=== PATIENT | male | born 1985 | race American Indian/Alaskan Native ===

== ENCOUNTER 2017-09-21 19:15 | Emergency (ER) | payer SELFPAY ==
--- NOTE | 2017-09-22 01:16 | Emergency Department Report ---
ED ENT HPI - General Chief complaint: Dental/Oral Stated complaint: MOUTH/TONGUE SWOLLEN Time Seen by Provider: 09/22/17 01:16 Source: patient Mode of arrival: Ambulatory Limitations: No Limitations - Related Data Previous Rx's Medication Instructions Recorded Last Taken Type Ibuprofen [Motrin 800 MG tab] 800 mg PO Q8HR PRN #30 tablet 11/07/15 Unknown Rx Allergies Allergy/AdvReac Type Severity Reaction Status Date / Time No Known Allergies Allergy Verified 11/06/15 23:23 ED Dental HPI - General Chief complaint: Dental/Oral Stated complaint: MOUTH/TONGUE SWOLLEN Time Seen by Provider: 09/22/17 01:16 Source: patient Mode of arrival: Ambulatory Limitations: No Limitations - Related Data Previous Rx's Medication Instructions Recorded Last Taken Type Ibuprofen [Motrin 800 MG tab] 800 mg PO Q8HR PRN #30 tablet 11/07/15 Unknown Rx Allergies Allergy/AdvReac Type Severity Reaction Status Date / Time No Known Allergies Allergy Verified 11/06/15 23:23 ED Review of Systems ROS: Stated complaint: MOUTH/TONGUE SWOLLEN Other details as noted in HPI ED Past Medical Hx - Past Medical History Additional medical history: Dental pain - Social History Smoking Status: Current Some Day Smoker Substance Use Type: None, Alcohol - Medications Home Medications: Home Medications Medication Instructions Recorded Confirmed Last Taken Type Ibuprofen [Motrin 800 MG tab] 800 mg PO Q8HR PRN #30 tablet 11/07/15 Unknown Rx ED Physical Exam - General Limitations: No Limitations ED Course Vital Signs 09/21/17 09/21/17 19:45 20:09 Temperature 100.1 F H 100.1 F H Pulse Rate 81 83 Respiratory 18 Rate Blood Pressure 145/72 145/72 O2 Sat by Pulse 99 Oximetry Critical care attestation.: If time is entered above; I have spent that time in minutes in the direct care of this critically ill patient, excluding procedure time. ED Disposition Condition: Stable Referrals: PRIMARY CARE,MD [Primary Care Provider] - 3-5 Days
--- NOTE | 2017-09-22 03:36 | Emergency Department Report ---
Chief Complaint: Dental/Oral Stated Complaint: MOUTH/TONGUE SWOLLEN Time Seen by Provider: 09/22/17 01:16 - HPI History of Present Illness: Patient here reportedly went to the dentist on 09/19/2017 and was seen for toothache diagnosed with infection and reports that his tongue was swelling and his face on the right side is swollen. Patient was started on penicillin VK 2 days ago and he said he is taking it every 6 hours, ibuprofen for pain every 6 hours and [place] every 4-6 hours as needed. This was prescribed by dentist and patient was to return to dentist for evaluation and treatment after being on antibiotic for a while. Patient said he is having increase in pain with swelling to his jaw pain is 8 out of 10. Denies any sore throat or drooling. Denies any nausea or vomiting. Denies any difficulty breathing and but reports that he feels like his throat is narrowing. He said his mouth and Tylenol as gotten bigger since then. He reports fever despite taking Motrin. Denies any chest pain. Denies any headache or nasal congestion. - ROS Review of Systems: All systems are negative unless stated in HPI above. Positive facial swelling, positive facial pain and tooth pain, positive tongue swelling and mild swelling. Positive fever. Negative chest pain or shortness of breath but positive feeling like throat is narrowing. Negative nasal congestion or runny nose. Negative headache. Positive fever - Exam Vital Signs: Vital Signs 09/21/17 09/21/17 19:45 20:09 Temperature 100.1 F H 100.1 F H Pulse Rate 81 83 Respiratory 18 Rate Blood Pressure 145/72 145/72 O2 Sat by Pulse 99 Oximetry Physical Exam: Gen.: This is a 31-year-old male that is well-nourished and in mild distress. Mouth: No trismus, positive tongue elevation, minimal uvular shift and oral airway is patent. Positive right facial swelling, no erythema tender to palpate nonfluctuant with positive injuries in extending down to right submandibular area. Dental caries, poor oral care and gingival inflammation with malodorous breath. Lungs: Clear to auscultate bilaterally, no rhonchi wheezes or rales MSE screening note: Focused history and physical exam performed. Due to findings the following was ordered: Patient discussed with doctor:: BERNIE BOYLE ED Medical Decision Making - Medical Decision Making MDM: Patient seen by a APC in the track area and screening done. Appropriate orders placed. I discussed this case with Dr. Boyle. CT scan of the neck with contrast ordered, labs, medication orders, IV fluid and INT ED Disposition for MSE Condition: Stable Referrals: PRIMARY CARE,MD [Primary Care Provider] - 3-5 Days
[2017-09-22] MEDS ORDERED: UNASYN/NS 3 GM/100 ML 3 GM/100 ML BAG IV ONE (03:42)
[2017-09-22] MEDS ORDERED: TYLENOL PO ONE (03:42)
[2017-09-22] MEDS ORDERED: NACL 0.9% 1000 ML 1,000 ML IV ONE (03:45)
[2017-09-22] MEDS ORDERED: MORPHINE IM ONE (03:47)
[2017-09-22] MEDS ORDERED: ZOFRAN IV ONE (03:47)
[2017-09-22 03:58] LABS: Basophils % (Auto) 0.1 % (0.0-1.8); Hematocrit 45.9 % (35.5-45.6); Hemoglobin 15.8 gm/dl (11.8-15.2); Lymphocytes # (Auto) 0.6 K/mm3 (1.2-5.4); Lymphocytes % (Auto) 3.6 % (13.4-35.0); Mean Corpuscular HGB Conc 35 % (32-34); Mean Corpuscular Hemoglobin 32 pg (28-32); Mean Corpuscular Volume 93 fl (84-94); Monocytes # (Auto) 2.1 K/mm3 (0.0-0.8); Monocytes % (Auto) 13.1 % (0.0-7.3); Red Blood Count 4.94 M/mm3 (3.65-5.03); Red Cell Distribution Width 13.9 % (13.2-15.2)
[2017-09-22 04:05] LABS: Platelet Count 242 K/mm3 (140-440)
[2017-09-22 04:24] LABS: INR 1.17 (0.87-1.13); Partial Thromboplastin Time 26.9 Sec. (24.2-36.6)
[2017-09-22 05:50] LABS: Blood Urea Nitrogen TNR mg/dL (9-20)
[2017-09-22 05:51] LABS: Alanine Aminotransferase TNR units/L (7-56); Albumin TNR g/dL (3.9-5); BUN/Creatinine Ratio TNR; Calcium TNR mg/dL (8.4-10.2)
[2017-09-22 05:52] LABS: Hemolysis Index TNR
--- NOTE | 2017-09-22 05:57 | Emergency Department Report ---
ED ENT HPI - General Chief complaint: Dental/Oral Stated complaint: MOUTH/TONGUE SWOLLEN Time Seen by Provider: 09/22/17 01:16 Source: patient, family Mode of arrival: Ambulatory Limitations: No Limitations - History of Present Illness Initial comments: Patient reports that he went to the dentist is 2 days ago which was 09/19/2017 and he needs some dental work so dentist evaluated him and put him on antibiotic to include penicillin VK, ibuprofen for pain and [place] for worsening pain. He says that since then he's been taking the antibiotic for 2 days and his mouth and Tylenol as gotten bigger. Reports chills but didn't take his temperature. Right facial area and on the right chin is heard in 8 out of 10. Sole worse with talking and touch. Denies any drainage. Patient said he supposed to have some dental work done but he was supposed to be an antibiotic first and it's not helping but he's only been on it for 2 days. He denies any medical problems or any long-term medication use. Pain is better with [place]. Denies any difficulty breathing and or shortness of breath. Denies any chest pain. Denies any coughing. Denies any drooling or sore throat. Denies any headache, nausea or vomiting. Denies any wheezing or stridor MD complaint: tooth pain, other (facial swelling and pain with fever, swelling of tongue and mouth) Onset/Timin -: days(s) Location: other (right facial area and right chin area.) Severity: severe Severity scale (0 -10): 8 Quality: other (sore and achy) Consistency: constant Improves with: rest, other ([place]) Worsens with: movement, other (talking / touching ) Context- Dental: history of dental caries, poor dental care Associated Symptoms: fever (chills), gum swelling, toothache. denies: cough, pain with swallowing, sore throat, tinnitus, hearing loss, discharge from ear, rhinorrhea - Related Data Home Medications Medication Instructions Recorded Confirmed Last Taken HYDROcodone/ACETAMINOPHEN [[place] 1 each PO Q4-6H PRN 09/22/17 09/22/17 09/21/17 22:30 5-325 Tablet] Previous Rx's Medication Instructions Recorded Last Taken Type Ibuprofen [Motrin 800 MG tab] 800 mg PO Q8HR PRN #30 tablet 11/07/15 09/21/17 19 :00 Rx Clindamycin HCl 300 mg PO Q6H 10 Days #40 capsule 09/22/17 Unknown Rx Allergies Allergy/AdvReac Type Severity Reaction Status Date / Time No Known Allergies Allergy Verified 11/06/15 23:23 ED Dental HPI - General Chief complaint: Dental/Oral Stated complaint: MOUTH/TONGUE SWOLLEN Time Seen by Provider: 09/22/17 01:16 Source: patient Mode of arrival: Ambulatory Limitations: No Limitations - Related Data Home Medications Medication Instructions Recorded Confirmed Last Taken HYDROcodone/ACETAMINOPHEN [[place] 1 each PO Q4-6H PRN 09/22/17 09/22/17 09/21/17 22:30 5-325 Tablet] Previous Rx's Medication Instructions Recorded Last Taken Type Ibuprofen [Motrin 800 MG tab] 800 mg PO Q8HR PRN #30 tablet 11/07/15 09/21/17 19 :00 Rx Clindamycin HCl 300 mg PO Q6H 10 Days #40 capsule 09/22/17 Unknown Rx Allergies Allergy/AdvReac Type Severity Reaction Status Date / Time No Known Allergies Allergy Verified 11/06/15 23:23 ED Review of Systems ROS: Stated complaint: MOUTH/TONGUE SWOLLEN Other details as noted in HPI Constitutional: chills. denies: fever, malaise Eyes: denies: eye pain, eye discharge, vision change ENT: dental pain, other (patient reports that his tongue is swelling and lip is swollen). denies: ear pain, throat pain, hearing loss, epistaxis, congestion Respiratory: denies: cough, shortness of breath, SOB with exertion, SOB at rest , stridor, wheezing Cardiovascular: denies: chest pain, palpitations, dyspnea on exertion, edema, syncope, paroxysmal nocturnal dyspnea Gastrointestinal: denies: abdominal pain, nausea, vomiting, diarrhea, constipation, hematemesis Genitourinary: denies: urgency, dysuria Musculoskeletal: denies: back pain, joint swelling, arthralgia Skin: other (reports facial swelling). denies: rash, lesions Neurological: denies: headache, weakness ED Past Medical Hx - Past Medical History Previous Medical History?: Yes Additional medical history: Dental pain. Gingivitis - Surgical History Past Surgical History?: No - Family History Family history: hypertension - Social History Smoking Status: Current Some Day Smoker Substance Use Type: None, Alcohol Other Social History: Single - Medications Home Medications: Home Medications Medication Instructions Recorded Confirmed Last Taken Type Ibuprofen [Motrin 800 MG tab] 800 mg PO Q8HR PRN #30 tablet 11/07/15 09/22/17 19:00 Rx Clindamycin HCl 300 mg PO Q6H 10 Days #40 capsule 09/22/17 Unknown Rx HYDROcodone/ACETAMINOPHEN [[place] 1 each PO Q4-6H PRN 09/22/17 09/22/17 09/21/17 22:30 History 5-325 Tablet] ED Physical Exam - General Limitations: No Limitations General appearance: alert, in no apparent distress - Head Head exam: Present: atraumatic, normocephalic - Eye Eye exam: Present: normal appearance, PERRL, EOMI. Absent: scleral icterus, conjunctival injection, periorbital swelling, periorbital tenderness Pupils: Present: normal accommodation - ENT ENT exam: Present: normal orophraynx, mucous membranes moist, TM's normal bilaterally, normal external ear exam. Absent: normal exam - Expanded ENT Exam Expanded Ear exam: Present: normal external inspection Mouth exam: Present: tongue normal, other (indurated area to right oral mucosa without any fluctuance.). Absent: normal external inspection, drooling, trismus , muffled voice, tongue elevation, laceration Teeth exam: Present: dental caries, dental tenderness # (widespread), gingival enlargement (with gingivitis), other (patient also with right facial swelling that is indurated and nonfluctuant with submental lymphadenopathy) Throat exam: Positive: normal inspection, other (uvula midline and oral airways patent). Negative: tonsillar erythema, tonsillomegaly, tonsillar exudate, R peritonsillar mass, L peritonsillar mass - Neck Neck exam: Present: normal inspection - Respiratory Respiratory exam: Present: normal lung sounds bilaterally. Absent: respiratory distress, wheezes, rales, rhonchi, chest wall tenderness, accessory muscle use, decreased breath sounds, prolonged expiratory - Cardiovascular Cardiovascular Exam: Present: regular rate, normal rhythm, normal heart sounds. Absent: systolic murmur, diastolic murmur - GI/Abdominal GI/Abdominal exam: Present: soft, normal bowel sounds. Absent: distended, tenderness, guarding, rebound, rigid - Extremities Exam Extremities exam: Present: normal inspection, full ROM, normal capillary refill , other (extremities cyanosis or edema. plus the proximal extremities and no neurovascular compromise). Absent: tenderness, pedal edema, joint swelling, calf tenderness - Back Exam Back exam: Present: normal inspection, full ROM, other (ambulates without any difficulties). Absent: tenderness, CVA tenderness (R), CVA tenderness (L), muscle spasm, paraspinal tenderness, vertebral tenderness, rash noted - Neurological Exam Neurological exam: Present: alert, oriented X3, normal gait - Psychiatric Psychiatric exam: Present: normal affect, normal mood - Skin Skin exam: Present: warm, dry, intact, normal color. Absent: rash, erythema ED Course Vital Signs 09/21/17 09/21/17 09/22/17 19:45 20:09 04:07 Temperature 100.1 F H 100.1 F H 101.6 F H Pulse Rate 81 83 76 Respiratory 18 18 Rate Blood Pressure 145/72 145/72 O2 Sat by Pulse 99 99 Oximetry 09/22/17 09/22/17 09/22/17 04:08 04:09 07:45 Temperature Pulse Rate 87 Respiratory 18 18 Rate Blood Pressure 152/78 O2 Sat by Pulse 99 Oximetry 09/22/17 09/22/17 09/22/17 07:51 08:13 09:24 Temperature 101.1 F H 100.8 F H Pulse Rate 90 Respiratory 18 18 Rate Blood Pressure O2 Sat by Pulse 99 Oximetry 09/22/17 09/22/17 09:35 11:00 Temperature Pulse Rate Respiratory 18 18 Rate Blood Pressure O2 Sat by Pulse Oximetry Vital Signs 09/21/17 09/21/17 09/22/17 19:45 20:09 04:07 Temperature 100.1 F H 100.1 F H 101.6 F H Pulse Rate 81 83 76 Respiratory 18 18 Rate Blood Pressure 145/72 145/72 O2 Sat by Pulse 99 99 Oximetry 09/22/17 09/22/17 09/22/17 04:08 04:09 07:45 Temperature Pulse Rate 87 Respiratory 18 18 Rate Blood Pressure 152/78 O2 Sat by Pulse 99 Oximetry 09/22/17 07:51 Temperature Pulse Rate Respiratory 18 Rate Blood Pressure O2 Sat by Pulse Oximetry Vital Signs 09/21/17 09/21/17 09/22/17 19:45 20:09 04:07 Temperature 100.1 F H 100.1 F H 101.6 F H Pulse Rate 81 83 76 Respiratory 18 18 Rate Blood Pressure 145/72 145/72 O2 Sat by Pulse 99 99 Oximetry 09/22/17 09/22/17 09/22/17 04:08 04:09 07:45 Temperature Pulse Rate 87 Respiratory 18 18 Rate Blood Pressure 152/78 O2 Sat by Pulse 99 Oximetry 09/22/17 09/22/17 07:51 08:13 Temperature 101.1 F H Pulse Rate Respiratory 18 Rate Blood Pressure O2 Sat by Pulse Oximetry Vital Signs 09/21/17 09/21/17 09/22/17 19:45 20:09 04:07 Temperature 100.1 F H 100.1 F H 101.6 F H Pulse Rate 81 83 76 Respiratory 18 18 Rate Blood Pressure 145/72 145/72 O2 Sat by Pulse 99 99 Oximetry 09/22/17 09/22/17 09/22/17 04:08 04:09 07:45 Temperature Pulse Rate 87 Respiratory 18 18 Rate Blood Pressure 152/78 O2 Sat by Pulse 99 Oximetry 09/22/17 09/22/17 09/22/17 07:51 08:13 09:24 Temperature 101.1 F H 100.8 F H Pulse Rate 90 Respiratory 18 18 Rate Blood Pressure O2 Sat by Pulse 99 Oximetry 09/22/17 09/22/17 09:35 11:00 Temperature Pulse Rate Respiratory 18 18 Rate Blood Pressure O2 Sat by Pulse Oximetry - Reevaluation(s) Reevaluation #1: 09/22/17 05:10 Patient here with dental pain and facial swelling. I spoke with Dr. Boyle regarding patient presentation and physical findings. Patient received 1 L normal saline bolus, 8 mg Zofran IV and 4 mg of morphine IV. Pain has been controlled at this point. Reevaluation #2: 09/22/17 06:25 History received ampicillin 3 g IV and Tylenol 650 mg by mouth. Ampicillin for infection Tylenol for fever greater than 101. Will reevaluate. She is in airway status and an without any trismus and Tylenol is normal. No stridor, wheezing, coughing or difficulty breathing or swallowing. CBC with elevated wbc with shift to left. CMP pending. It was reported previously that bun and/CR stable now tech report grossly hemolysed. Reevaluation #3: 09/22/17 08:[address] Preciado regarding patient's CT scan findings, treatment plan. He reports the patient can be discharged home after stable vital signs to follow -up with outpatient dentist and oral surgeon. Patient already has a dentist and has planned to follow up with surgery to have wisdom tooth pulled. Patient is stable, no trismus, oral airways patent and palate is normal. Pain is controlled. The patient still with elevated temp of greater than 101. Patient given Motrin 800 mg by mouth and he is given additional 1 L of normal saline. Patient states that he is feeling better overall and I instructed him that he will have to wait until his temperature goes down for he can be discharged. I updated him on his CT scan results. Patient says that he went to [facility] who placed him on the antibiotic but it wasn't working this why he came here and they had referred him to [facility] to have his wisdom tooth pulled but they wanted him to be on antibiotic for 10 days before they do procedure. Patient reports that his dentist knows that he has poor gums but he just didn't think that antibiotic was working . Reevaluation #4: 09/22/17 08:54 Will recheck patient's temperature vital signs and a stable patient will be able to go home. Reevaluation #5: 09/22/17 09:34 Patient's temperature is better 100.8 and other vital signs are stable. Discharge home and was to see feeling a lot better. He is able to tolerate oral liquids without any difficulties. Mouth exam shows no swelling of tongue, uvula is midline and oral airways patent. ED Medical Decision Making - Lab Data Result diagrams: 09/22/17 03:41 09/22/17 08:42 Lab Results 09/22/17 09/22/17 09/22/17 Range/Units 03:41 03:41 04:00 WBC 16.2 H (4.5-11.0) K/mm3 RBC 4.94 (3.65-5.03) M/mm3 Hgb 15.8 H (11.8-15.2) gm/dl Hct 45.9 H (35.5-45.6) % MCV 93 (84-94) fl MCH 32 (28-32) pg MCHC 35 H (32-34) % RDW 13.9 (13.2-15.2) % Plt Count 242 (140-440) K/mm3 Lymph % (Auto) 3.6 L (13.4-35.0) % Creek % (Auto) 13.1 H (0.0-7.3) % Eos % (Auto) 0.0 (0.0-4.3) % Baso % (Auto) 0.1 (0.0-1.8) % Lymph # 0.6 L (1.2-5.4) K/mm3 Creek # 2.1 H (0.0-0.8) K/mm3 Eos # 0.0 (0.0-0.4) K/mm3 Baso # 0.0 (0.0-0.1) K/mm3 Seg Neutrophils % 83.2 H (40.0-70.0) % Seg Neutrophils # 13.5 H (1.8-7.7) K/mm3 PT 15.6 H (12.2-14.9) Sec. INR 1.17 H (0.87-1.13) APTT 26.9 (24.2-36.6) Sec. Sodium TNR Potassium TNR Chloride TNR Carbon Dioxide TNR Anion Gap TNR BUN TNR Creatinine TNR Estimated GFR TNR BUN/Creatinine Ratio TNR Glucose TNR Lactic Acid (0.7-2.0) mmol/L Calcium TNR Total Bilirubin TNR AST TNR ALT TNR Alkaline Phosphatase TNR Total Protein TNR Albumin TNR Albumin/Globulin Ratio TNR Group A Strep Rapid (Negative) 09/22/17 09/22/17 Range/Units 04:41 Unknown WBC (4.5-11.0) K/mm3 RBC (3.65-5.03) M/mm3 Hgb (11.8-15.2) gm/dl Hct (35.5-45.6) % MCV (84-94) fl MCH (28-32) pg MCHC (32-34) % RDW (13.2-15.2) % Plt Count (140-440) K/mm3 Lymph % (Auto) (13.4-35.0) % Creek % (Auto) (0.0-7.3) % Eos % (Auto) (0.0-4.3) % Baso % (Auto) (0.0-1.8) % Lymph # (1.2-5.4) K/mm3 Creek # (0.0-0.8) K/mm3 Eos # (0.0-0.4) K/mm3 Baso # (0.0-0.1) K/mm3 Seg Neutrophils % (40.0-70.0) % Seg Neutrophils # (1.8-7.7) K/mm3 PT (12.2-14.9) Sec. INR (0.87-1.13) APTT (24.2-36.6) Sec. Sodium Potassium Chloride Carbon Dioxide Anion Gap BUN Creatinine Estimated GFR BUN/Creatinine Ratio Glucose Lactic Acid 1.90 (0.7-2.0) mmol/L Calcium Total Bilirubin AST ALT Alkaline Phosphatase Total Protein Albumin Albumin/Globulin Ratio Group A Strep Rapid Negative (Negative) Blood culture sent and pending - Radiology Data Radiology results: report reviewed CT of the neck with IV contrast Edema extending throughout the right submandibular and submental region and enlarging the muscles of mastication results in leftward deviation of the airway and is all centered on posterior molars of the right mandible, most consistent with dental related infection. No focal fluid collection identified to suggest abscess formation. Increased sclerosis within the posterior right mandible is also probably related to dental infection and may represent osteomyelitis. No periosteal reaction or gross cortical disruption. Patient: BUCKY MARROQUIN MR#: [id number] : 1985 Acct:[id number] Age/Sex: 31 / M ADM Date: 09/21/17 Loc: ED Attending Dr: Ordering Physician: HARRISON WARD Date of Service: 09/22/17 Procedure(s): CT neck w con Accession Number(s): [id number] cc: HARRISON WARD FINAL REPORT EXAM: CT NECK W CON HISTORY: rt facial swelling/pain.submental swelling TECHNIQUE: CT images are acquired through the neck following intravenous administration of contrast. Transaxial , coronal and sagittal reformations are provided. PRIORS: None. FINDINGS: Right perimandibular soft tissue swelling involving the towel weaver space and resulting in reactive submental and submandibular lymphadenopathy is centered on a large dental amy involving a posterior right mandibular molar seen on axial series 2, image 40. There is mild edema within the right parapharyngeal fat and mild rightward deviation of the airway, which remains patent. No focal fluid collection to suggest abscess formation. Carotid and jugular vasculature is normal in caliber and is normally opacified. There is increased sclerosis within the right mandible 09/22/2017 XERO demonstrated on axial images 45-47. No periosteal reaction or cortical disruption identified. Temporomandibular joints are unremarkable. The cervical spine appears intact with notable cervical straightening and no listhesis or vertebral body height loss. Incidental left submandibular oval circumscribed fat containing lesion measures 22 x 21 x 12 millimeters on axial series 2, image 55 and coronal image 30, which may represent a lipoma or sebaceous cyst. IMPRESSION: Edema extending throughout the right submandibular and submental region and enlarging the muscles of mastication results in leftward deviation of the airway and is all centered on posterior molars of the right mandible, most consistent with dental related infection. No focal fluid collection identified to suggest abscess formation. Increased sclerosis within the posterior right mandible is also probably related to dental infection and may represent osteomyelitis. No periosteal reaction or gross cortical disruption. Dr. Guevara discussed findings with Dr. Diaz At 0441 central Time on 09/22/2017 immediately following the examination. Transcribed By: MB Dictated By: SOTERO GUEVARA MD Electronically Authenticated By: SOTERO GUEVARA MD Signed Date/Time: 09/22/17550 DD/ 0 TD/TT: 09/22/17 - Medical Decision Making ED course: She came to emergency room with right facial swelling extended to his right chin area. Patient had been to the dentist and was prescribed penicillin VK, Motrin and [place]. He reports the swelling has increased over 2 day period of being on antibiotic. Patient also reportedly a tongue swelling. Physical findings for patent airway with midline uvula but patient with extensive right facial swelling extended on to his submental area. CT scan of the neck with IV contrast showed patient with extensive dental disease, dental caries, dental infection but no abscess was seen. Please refer to radiology section for detail on CT scan. Patient with CBC elevated white count with shift into the left. Chemistry stable, lactic acid is within normal limits. Please refer to laboratory section for details on labs. Patient came in emergency room with low-grade fever and was given Tylenol 650 mg by mouth. He was also given ampicillin/sulfabacy. 3 g IV, morphine 4 mg IV and 1 L normal saline bolus. He is also given Zofran 8 mg IV. Patient still with elevated temperature so he was given Motrin 800 mg an additional 1 L. Normal saline and patient temperature and vital signs are stable. I discussed case with Dr. Boyle managed patient's with me. Blood cultures are pending, strep test is negative. Patient is stable and I discuss plans to discharge and outpatient to follow-up with his personal dentist and also he has appointment to have this tooth extraction with [facility] and history. He will call and confirm appointment and update them on his ED stay. Patient's insulin better. Patient is discharged home with his family in stable condition and to follow-up with [facility] and his personal dentist. He was understanding the discharge instructions and treatment plan and knows that he will need to return to the emergency room if condition worsens. Patient antibiotic was changed from penicillin VK to clindamycin and I instructed him he can continue his Motrin and [place] as instructed by his dentist. - Differential Diagnosis Amauri's angina, dental abscess, oral cellulitis Critical care attestation.: If time is entered above; I have spent that time in minutes in the direct care of this critically ill patient, excluding procedure time. ED Disposition Clinical Impression: Dental infection, Generalized gingivitis, Infected dental caries, Lymphadenopathy of head and neck region, Toothache, Fever chills Leukocytosis Qualifiers: Leukocytosis type: unspecified Qualified Code(s): D72.829 - Elevated white blood cell count, unspecified Disposition: DC-01 TO HOME OR SELFCARE Is pt being admited?: No Does the pt Need Aspirin: No Condition: Stable Instructions: Dental Abscess (ED), Dental Caries (ED), Gingivitis (ED), Fever in Adults (ED), Lymphadenopathy (ED), Leukocytosis (ED), Toothache (ED) Additional Instructions: Please call your dentist today and let them know the urine emergency room for failed antibiotic. Please deny your placed on a different antibiotic and your given IV antibiotics along with IV fluid in the emergency room. Call [facility] and let them know that her antibiotic was changed and set up an appointment for them to pull your tooth. He has widespread infection and localized infection that possibly involvement bone in your right mandible area and will need to take antibiotic as discussed. If your condition worsens, such as wheezing, stridor, coughing, swelling of throat or tongue, swollen neck, difficulty breathing or swallowing, drooling please return to the emergency room MJ *Taking clindamycin and discontinue penicillin Continue taking [place] and Motrin please do not drive or operate heavy machinery if you take an [place] as this medication causes drowsiness Prescriptions: Clindamycin HCl 300 mg PO Q6H 10 Days #40 capsule Referrals: PRIMARY CARE, [Primary Care Provider] - 09/23/17 [facility] [Other] - 09/23/17 [facility] [Other] - 09/23/17 (As scheduled. Please call to let them know that your antibiotic was changed and year given IV antibiotic. That another you have widespread gingivitis to include infection and new bone.) Forms: Accompanied Note, Work/School Release Form(ED)
[2017-09-22 07:51] VITALS: BP 152/78
[2017-09-22] MEDS ORDERED: MOTRIN ONE (08:15)
[2017-09-22] MEDS ORDERED: NACL 0.9% 1000 ML 1,000 ML ONE (08:15)
[2017-09-22 09:19] LABS: Alanine Aminotransferase 20 units/L (7-56); Albumin 3.4 g/dL (3.9-5); BUN/Creatinine Ratio 12; Blood Urea Nitrogen 11 mg/dL (9-20); Calcium 8.6 mg/dL (8.4-10.2); Hemolysis Index 10
[2017-09-22] MEDS ORDERED: MOTRIN PO ONE (14:35)
== END 2017-09-22 09:54 | disposition home or self-care (01) ==
LOC: ED 19:15
DX: K04.7 Periapical abscess without sinus (principal); D72.829 Elevated white blood cell count, unspecified; R59.1 Generalized enlarged lymph nodes; F17.200 Nicotine dependence, unspecified, uncomplicated
CPT/HCPCS: 36415; 70491; 80053; 82140; 85025; 85610; 85730; 87040; 87116; 87430; 96365; 96366; 96372; 96375; 99284; J0295; J2270; J2405; J7030; Q9967; 99281